=== PATIENT | female | born 1980 | race Two or more races ===

== ENCOUNTER 2023-01-23 19:27 | Emergency (ER) | payer OTHER ==
[~2023-01-23] VITALS: Ht 160 cm; Wt 68.0 kg
[2023-01-23 20:00] VITALS: BP 144/87
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
--- NOTE | 2023-01-23 20:40 | NUR ---
PRODUCTION HONING MACHINE OPERATOR AT PT'S BEDSIDE
--- NOTE | 2023-01-23 20:56 | NUR ---
[employer] AT BED SIDE
[2023-01-23] MEDS ORDERED: NAPROXEN 250 MG TABLET ONE (21:22)
[2023-01-23] MEDS ORDERED: NAPROXEN 250 MG TABLET PO ONE (21:30)
--- NOTE | 2023-01-23 21:34 | NUR ---
OFFICE SERVICES SPECIALIST AT PT'S BEDSIDE
[2023-01-23] MEDS ORDERED: NAPR-1009 PO (22:15)
--- NOTE | 2023-01-23 22:25 | NUR ---
SPLINT APPLIED TO R WRIST
--- NOTE | 2023-01-23 22:26 | NUR ---
Patient discharged to home in stable condition. Written and verbal after care instructions given. Patient verbalizes understanding of instruction. PT ambulatory with a steady gait
== END 2023-01-23 22:27 | disposition home or self-care (01) ==
LOC: ER 19:38
DX: S52.521A Torus fracture of lower end of right radius, initial encounter for closed fracture (principal); M25.561 Pain in right knee; M79.644 Pain in right finger(s); V89.2XXA Person injured in unspecified motor-vehicle accident, traffic, initial encounter; Y93.89 Activity, other specified; Y92.89 Other specified places as the place of occurrence of the external cause; Y99.8 Other external cause status
CPT/HCPCS: 73130-TC; 73564-TC